=== PATIENT | female | born 1955 | race Two or more races ===

== ENCOUNTER 2024-06-10 20:37 | Emergency (ER) | payer OTHER ==
[~2024-06-10] VITALS: Ht 165.1 cm; Wt 67.1 kg
[2024-06-10] MEDS ORDERED: VANCOMYCIN 1 GM /D5W 250 ML PB IV ONE (21:17)
[2024-06-10 21:25] LABS: BASOPHILS # (AUTO) 0.1 K/uL (0.0-0.2); BASOPHILS % (AUTO) 0.9 % (0.0-2.0); EOSINOPHILS # (AUTO) 0.5 K/uL (0.0-0.7); EOSINOPHILS % (AUTO) 4.2 % (0.0-6.0); HEMATOCRIT 36 % (33-45); HEMOGLOBIN 11.7 g/dL (11.5-14.8); LYMPHOCYTES % (AUTO) 8.4 % (20.0-44.0); MEAN CORPUSCULAR HEMOGLOBIN 33 PG (26.0-33.0); MEAN CORPUSCULAR HGB CONC 33 g/dl (31.0-36.0); MEAN CORPUSCULAR VOLUME 102 fL (82-100); MONOCYTES # (AUTO) 1.4 K/uL (0.1-1.30); MONOCYTES % (AUTO) 11.3 % (2.0-12.0); NEUTROPHILS # (AUTO) 9.1 K/uL (1.8-8.9); NEUTROPHILS % (AUTO) 75.2 % (43.0-81.0); PLATELET COUNT (AUTO) 316 K/uL (150-450); RED BLOOD CELL COUNT(AUTO) 3.52 MIL/uL (4.0-5.2); RED CELL DISTRIBUTION WIDTH 16.3 % (11.5-15.0); WHITE BLOOD COUNT (AUTO) 12.1 K/uL (4.3-11.0)
[2024-06-10] MEDS: VANCOMYCIN 1 GM in IV D5W 250 ML IV ONE (21:26)
[2024-06-10] MEDS ORDERED: OLANZAPINE 10 MG VIAL IM ONE (21:36)
[2024-06-10 21:37] LABS: PROTHROMBIN TIME 10.6 SECS (9.2-11.1)
[2024-06-10 21:45] LABS: LACTIC ACID 1.1 mmol/L (0.4-2.0)
[2024-06-10] MEDS: OLANZAPINE 10 MG VIAL IM ONE (21:46)
[2024-06-10 21:50] LABS: ALCOHOL, BLOOD < 3 mg/dL (0-10)
[2024-06-10 21:51] LABS: SERUM AMMONIA 13 umol/L (11-32)
[2024-06-10 21:55] LABS: ALBUMIN 2.6 g/dL (3.4-5.0); BILIRUBIN,DIRECT 0.4 mg/dL (0.0-0.2); BILIRUBIN,TOTAL 0.9 mg/dL (0.2-1.0); CALCIUM, SERUM 9.1 mg/dL (8.5-10.1); CREATININE 1.9 mg/dL (0.6-1.3); POTASSIUM 3.4 mmol/L (3.5-5.1); TOTAL PROTEIN, SERUM 6.4 g/dL (6.4-8.2)
[2024-06-10 23:24] LABS: APPEARANCE,URINE SLIGHTLY CLOUDY (CLEAR); BILIRUBIN,URINE NEGATIVE (NEGATIVE); BLOOD, URINE 2+ Ery/uL (NEGATIVE); COLOR,URINE YELLOW (YELLOW); KETONES,URINE NEGATIVE (NEGATIVE); LEUKOCYTE ESTERASE ,URINE 2+ (NEGATIVE); NITRITE, URINE NEGATIVE (NEGATIVE); PROTEIN,URINE 1+ mg/dl (NEGATIVE); UGLUCOSE NEGATIVE (NEGATIVE); UROBILINOGEN,URINE 0.2 EU/dL (0.2)
[2024-06-10 23:26] LABS: BACTERIA,URINE Many /HPF (None Seen)
[2024-06-10 23:28] LABS: ADD URINE CULTURE YES; WBC,URINE 81-100 /HPF (0-3)
[2024-06-10 23:32] LABS: SQUAMOUS EPITHELIAL CELL,UR Few /HPF (None Seen)
[2024-06-10 23:50] LABS: AMPHETAMINE, URINE NEGATIVE (NEGATIVE); BARBITURATE, URINE NEGATIVE (NEGATIVE); BENZODIAZEPINE, URINE NEGATIVE (NEGATIVE); CANNABINOID, URINE NEGATIVE (NEGATIVE); COCCAINE, URINE NEGATIVE (NEGATIVE); OPIATE, URINE NEGATIVE (NEGATIVE); PHENCYCLIDINE SCREEN,URINE NEGATIVE (NEGATIVE)
[2024-06-11 05:25] VITALS: BP 165/88; TEMP 99.3; O2SAT 100
== END 2024-06-11 06:19 | disposition short-term general hospital (02) ==
LOC: ER 20:40
DX: R46.1 Bizarre personal appearance (principal); L03.119 Cellulitis of unspecified part of limb; A41.9 Sepsis, unspecified organism; E03.9 Hypothyroidism, unspecified; I11.0 Hypertensive heart disease with heart failure; I50.9 Heart failure, unspecified; M85.80 Other specified disorders of bone density and structure, unspecified site; N17.9 Acute kidney failure, unspecified; Z88.0 Allergy status to penicillin
CPT/HCPCS: 99285; 96372; 96365; 93005; 71045; 70450; 82140; 85025; 80048; 87040 ×2; 87086; 83605; 80076; 81001; 36415; 84443; 85730; 82962; 80320; 80307; J3370 ×2; J3490; G0480; J7060

== ENCOUNTER 2024-07-13 12:12 | Emergency (ER) | payer OTHER ==
[~2024-07-13] VITALS: Ht 165.1 cm; Wt 65.8 kg
[2024-07-13 12:24] VITALS: TEMP 98
[2024-07-13 13:58] LABS: ALANINE AMINOTRANSFERASE 21 U/L (12-78); ALBUMIN 2.7 g/dL (3.4-5.0); ALKALINE PHOSPHATASE 117 U/L (46-116); ASPARTATE AMINOTRANSFERASE 20 U/L (15-37); BILIRUBIN,DIRECT 0.3 mg/dL (0.0-0.2); BILIRUBIN,TOTAL 0.7 mg/dL (0.2-1.0); CARBON DIOXIDE 28 mmol/L (21-32); CHLORIDE 91 mmol/L (98-107); CREATININE 1.6 mg/dL (0.6-1.3); GLUCOSE 168 mg/dL (74-106); POTASSIUM 4.2 mmol/L (3.5-5.1); SODIUM SERUM 130 mmol/L (136-145); TOTAL PROTEIN, SERUM 6.5 g/dL (6.4-8.2); UREA NITROGEN, BLOOD 70 mg/dL (7-18)
[2024-07-13 14:01] LABS: BASOPHILS # (AUTO) 0.1 K/uL (0.0-0.2); BASOPHILS % (AUTO) 0.8 % (0.0-2.0); EOSINOPHILS # (AUTO) 0.3 K/uL (0.0-0.7); EOSINOPHILS % (AUTO) 2.3 % (0.0-6.0); HEMATOCRIT 27 % (33-45); HEMOGLOBIN 8.9 g/dL (11.5-14.8); LYMPHOCYTES # (AUTO) 0.9 K/uL (0.8-4.8); LYMPHOCYTES % (AUTO) 6.7 % (20.0-44.0); MEAN CORPUSCULAR HEMOGLOBIN 29 PG (26.0-33.0); MEAN CORPUSCULAR HGB CONC 33 g/dl (31.0-36.0); MEAN CORPUSCULAR VOLUME 88 fL (82-100); MONOCYTES # (AUTO) 1.9 K/uL (0.1-1.30); MONOCYTES % (AUTO) 14.8 % (2.0-12.0); NEUTROPHILS # (AUTO) 9.7 K/uL (1.8-8.9); NEUTROPHILS % (AUTO) 75.4 % (43.0-81.0); PLATELET COUNT (AUTO) 505 K/uL (150-450); RED BLOOD CELL COUNT(AUTO) 3.06 MIL/uL (4.0-5.2); RED CELL DISTRIBUTION WIDTH 16.4 % (11.5-15.0); WHITE BLOOD COUNT (AUTO) 12.9 K/uL (4.3-11.0)
[2024-07-13 14:07] LABS: APPEARANCE,URINE TURBID (CLEAR); BILIRUBIN,URINE NEGATIVE (NEGATIVE); BLOOD, URINE 1+ Ery/uL (NEGATIVE); COLOR,URINE YELLOW (YELLOW); KETONES,URINE NEGATIVE (NEGATIVE); PROTEIN,URINE 2+ mg/dl (NEGATIVE); UGLUCOSE NEGATIVE (NEGATIVE); UROBILINOGEN,URINE 0.2 EU/dL (0.2)
[2024-07-13 14:08] LABS: LEUKOCYTE ESTERASE ,URINE 2+ (NEGATIVE); NITRITE, URINE POSITIVE (NEGATIVE)
[2024-07-13 14:12] LABS: ADD URINE CULTURE YES; BACTERIA,URINE 1+ /HPF (None Seen); MUCUS,URINE Few /LPF (None Seen); WBC,URINE 51-80 /HPF (0-3)
[2024-07-13] MEDS ORDERED: FUROSEMIDE 40 MG/4 ML VIAL ONE (14:50)
[2024-07-13] MEDS: FUROSEMIDE 40 MG/4 ML VIAL IV ONE (14:55)
[2024-07-13] MEDS ORDERED: CEFTRIAXONE 1GM BAG (ER ONLY) 50 ML IV ONE (15:48)
[2024-07-13] MEDS: CEFTRIAXONE 1GM BAG (ER ONLY) 1 GM/50 ML PIGGYBACK IV ONE (15:50)
[2024-07-13 18:00] VITALS: BP 118/83; O2SAT 97
== END 2024-07-13 18:50 | disposition short-term general hospital (02) ==
LOC: ER 12:14
DX: I11.0 Hypertensive heart disease with heart failure (principal); I50.9 Heart failure, unspecified; N39.0 Urinary tract infection, site not specified; R53.1 Weakness; D75.839 Thrombocytosis, unspecified; Z88.0 Allergy status to penicillin
CPT/HCPCS: 99291; 96365; 96375; 99292; 93005; 71045; 85025; 80048; 87086; 80076; 81001; 36415; 84443; 84484 ×2; 83880; J1940; J0696; 87186-TC